=== PATIENT | female | born 1970 | race Caucasian/White ===

== ENCOUNTER → 2017-08-19 | Outpatient (CLI) | payer OTHER ==
[~2017-08-19] MED LIST: LIDOCAINE 1%, 20ML ONE; LIDOCAINE 1%-EPI 1:100K, 20ML ONE
== END | disposition home or self-care (01) ==
LOC: CFH 08:10 → EDSTATUS 08:15
PROVIDERS: ATTEND Obstetrics & Gynecology
DX: N63.21 Unspecified lump in the left breast, upper outer quadrant (principal); N63.10 Unspecified lump in the right breast, unspecified quadrant
CPT/HCPCS: 19083; 19084; 76642; 77066; J3490; 88305

== ENCOUNTER → 2017-09-10 | Outpatient (CLI) | payer OTHER ==
[~2017-09-10] MED LIST changes: +GADOBUTROL 10 MMOL/10 ML VIAL ONE; -LIDOCAINE 1%, 20ML ONE; -LIDOCAINE 1%-EPI 1:100K, 20ML ONE
== END ==
LOC: CFH 12:29
PROVIDERS: ATTEND Surgery
DX: C50.412 Malignant neoplasm of upper-outer quadrant of left female breast (principal)
CPT/HCPCS: 71046; A9585; C8908

== ENCOUNTER 2017-10-29 06:38 | Day surgery (SDC) | payer OTHER ==
[2017-10-25 14:13] VITALS: BP 122/84
[~2017-10-29] VITALS: Ht 167.6 cm; Wt 94.5 kg
[~2017-10-29 06:38] MED LIST changes: +EMLA CREAM TP; -GADOBUTROL 10 MMOL/10 ML VIAL ONE; +THYR90TA PO
[2017-10-29] MEDS ORDERED: SCOPOLAMINE PATCH, 1.5MG PATCH.TD72 TD ONE (08:30)
[2017-10-29] MEDS ORDERED: DIAZEPAM 5 MG TABLET PO ONE (08:30)
[2017-10-29] MEDS ORDERED: ACETAMINOPHEN 500 MG TABLET PO ONE (08:30)
[2017-10-29] MEDS ORDERED: OxyconTIN ER 10 MG TAB.ER PO ONE (08:30)
[2017-10-29] MEDS ORDERED: GABAPENTIN 300 MG CAPSULE PO ONE (08:30)
[2017-10-29] MEDS ORDERED: FAMOTIDINE 20 MG TABLET PO ONE (08:30)
[2017-10-29 09:21] LABS: HCG UR SG 1.022 (1.003-1.030)
[2017-10-29] MEDS ORDERED: LACTATED RINGERS 1,000 ML IV SCH (09:22)
[2017-10-29] MEDS ORDERED: ONDANSETRON ODT 8 MG ONE (09:45)
[2017-10-29] MEDS ORDERED: ONDANSETRON ODT 8 MG PO ONE (10:00)
[2017-10-29] MEDS ORDERED: BUPIVACAINE/PF-EPI 0.5% 1:200K INFIL ONE (11:27)
[2017-10-29] MEDS: FENTANYL PF 100 MCG/2ML IV PRN ×3 (13:10→13:28)
[2017-10-29] MEDS ORDERED: OXYcodone 5 MG/5 ML ORAL.SOL UDC PO PRN (13:30)
[2017-10-29] MEDS ORDERED: MIDAZOLAM 1 MG/ML, 2ML IV PRN (13:30)
[2017-10-29] MEDS ORDERED: EPHEDRINE 50 MG/ML, 1ML IVPush PRN (13:30)
[2017-10-29] MEDS ORDERED: ONDANSETRON 2MG/ML, 2ML IVPush PRN (13:30)
[2017-10-29] MEDS ORDERED: METOPROLOL 1 MG/ML, 5ML IV PRN (13:30)
[2017-10-29] MEDS ORDERED: PROMETHAZINE 12.5 MG SUPP PR PRN (13:30)
[2017-10-29] MEDS ORDERED: HYDROcodone/APAP 7.5-325MG/15ML UDC PO PRN (13:30)
[2017-10-29] MEDS ORDERED: hydrALAzine 20 MG/ML, 1ML IV PRN (13:30)
[2017-10-29] MEDS ORDERED: MEPERIDINE/PF 25MG/0.5ML IVPush PRN (13:30)
[2017-10-29] MEDS ORDERED: LABETALOL 5MG/ML, 20ML IV PRN (13:30)
[2017-10-29] MEDS ORDERED: PROMETHAZINE 25 MG/ML, 1ML IV PRN (13:30)
[2017-10-29] MEDS ORDERED: ALBUTEROL SULFATE 2.5 MG/3 ML NPPB PRN (13:30)
[2017-10-29] MEDS ORDERED: morphine SULFATE 10 MG/ML, 1ML IV PRN (13:30)
[2017-10-29] MEDS ORDERED: DIAZEPAM 5 MG/ML, 2ML IVPush PRN (13:30)
[2017-10-29] MEDS ORDERED: ONDANSETRON 2MG/ML, 2ML ONE (15:24)
[2017-10-29] MEDS ORDERED: PROPOFOL 10 MG/ML, 20ML ONE (15:24)
[2017-10-29] MEDS ORDERED: DEXAMETHASONE 4 MG/ML, 1ML ONE (15:24)
[2017-10-29] MEDS ORDERED: CEFAZOLIN 1,000 MG ONE (15:24)
== END 2017-10-29 18:45 ==
LOC: CFH 06:38 → OUT 18:45
PROVIDERS: ATTEND Surgery
DX: C50.912 Malignant neoplasm of unspecified site of left female breast (principal); E78.00 Pure hypercholesterolemia, unspecified; E03.9 Hypothyroidism, unspecified; Z98.890 Other specified postprocedural states; Z88.1 Allergy status to other antibiotic agents; Z88.8 Allergy status to other drugs, medicaments and biological substances
CPT/HCPCS: 19285; 19301; 38525; 38792; 77065; 81025; 88307; 88329; 88333; A9541; C1729; J0171; J0690; J1100; J2250; J2405; J2704; J3010; J3490; J7120

== ENCOUNTER → 2018-01-09 | Outpatient (CLI) | payer OTHER | END | disposition home or self-care (01) | LOC: CFH 15:39 | PROVIDERS: ATTEND Radiology Radiation Oncology | DX: R22.32 Localized swelling, mass and lump, left upper limb (principal) ==

== ENCOUNTER → 2018-02-19 | Outpatient (CLI) | payer OTHER | END | disposition home or self-care (01) | LOC: ROC 07:54 | PROVIDERS: ATTEND Radiology Radiation Oncology | DX: C50.412 Malignant neoplasm of upper-outer quadrant of left female breast (principal) | CPT/HCPCS: 99213; G0463 ==

== ENCOUNTER → 2018-05-02 | Outpatient (CLI) | payer OTHER | END | disposition home or self-care (01) | LOC: CFH 12:13 | PROVIDERS: ATTEND Radiology Radiation Oncology | DX: Z09 Encounter for follow-up examination after completed treatment for conditions other than malignant neoplasm (principal); C50.412 Malignant neoplasm of upper-outer quadrant of left female breast | CPT/HCPCS: 77065 ==

== ENCOUNTER → 2018-06-27 | Outpatient (CLI) | payer OTHER | END | disposition home or self-care (01) | LOC: PETCFH 09:36 | PROVIDERS: ATTEND Internal Medicine Hematology & Oncology | DX: C88.9 Malignant immunoproliferative disease, unspecified (principal); C50.412 Malignant neoplasm of upper-outer quadrant of left female breast | CPT/HCPCS: 78815; A9552 ==

== ENCOUNTER 2018-07-04 06:13 | Day surgery (SDC) | payer OTHER ==
[~2018-07-04] VITALS: Ht 167.6 cm; Wt 99.7 kg
[2018-07-04] MEDS ORDERED: SODIUM CHLORIDE 0.9% 1,000 ML IV SCH (06:54)
[2018-07-04 07:23] VITALS: BP 103/68
[2018-07-04] MEDS ORDERED: LIDOCAINE-MPF 1%, 5ML ONE (07:40)
[2018-07-04] MEDS ORDERED: MIDAZOLAM 1 MG/ML, 5ML ONE ×2 (07:43)
[2018-07-04] MEDS ORDERED: NALOXONE 1 MG/ML, 2ML ONE (07:43)
[2018-07-04] MEDS ORDERED: FENTANYL PF 100 MCG/2ML ONE ×2 (07:43)
[2018-07-04] MEDS ORDERED: FLUMAZENIL 0.1 MG/1 ML, 5ML ONE (07:43)
== END 2018-07-04 09:55 | disposition home or self-care (01) ==
LOC: OUT 06:13
PROVIDERS: ATTEND Internal Medicine Hematology & Oncology
DX: C85.11 Unspecified B-cell lymphoma, lymph nodes of head, face, and neck (principal); C50.412 Malignant neoplasm of upper-outer quadrant of left female breast; I10 Essential (primary) hypertension
CPT/HCPCS: 38505; 76942; 88305; J2250; J3010; J7030; J2310

== ENCOUNTER → 2018-09-17 | Outpatient (CLI) | payer OTHER | END | disposition home or self-care (01) | LOC: CFH 09:39 | PROVIDERS: ATTEND Internal Medicine Hematology & Oncology | DX: Z12.31 Encounter for screening mammogram for malignant neoplasm of breast (principal) | CPT/HCPCS: 77067 ==

== ENCOUNTER → 2018-10-29 | Outpatient (CLI) | payer OTHER | END | disposition home or self-care (01) | LOC: CFH 09:09 → EDSTATUS 09:15 | PROVIDERS: ATTEND Specialist | DX: N83.202 Unspecified ovarian cyst, left side (principal); N83.201 Unspecified ovarian cyst, right side | CPT/HCPCS: 76830 ==

== ENCOUNTER → 2019-12-23 | Outpatient (CLI) | payer OTHER | END | disposition home or self-care (01) | LOC: CFH 10:12 | PROVIDERS: ATTEND Internal Medicine Hematology & Oncology | DX: Z12.31 Encounter for screening mammogram for malignant neoplasm of breast (principal); C88.9 Malignant immunoproliferative disease, unspecified; C50.412 Malignant neoplasm of upper-outer quadrant of left female breast; H60.11 Cellulitis of right external ear; Z85.3 Personal history of malignant neoplasm of breast | CPT/HCPCS: 76641; 77067 ==

== ENCOUNTER → 2020-08-30 | Outpatient (CLI) | payer OTHER | END | disposition home or self-care (01) | LOC: PETCFH 13:38 | PROVIDERS: ATTEND Internal Medicine Hematology & Oncology | DX: C50.412 Malignant neoplasm of upper-outer quadrant of left female breast (principal); C91.12 Chronic lymphocytic leukemia of B-cell type in relapse; C88.9 Malignant immunoproliferative disease, unspecified; H60.11 Cellulitis of right external ear; R16.1 Splenomegaly, not elsewhere classified; R59.1 Generalized enlarged lymph nodes | CPT/HCPCS: 78815; 93005; A9552 ==

== ENCOUNTER 2020-09-19 13:44 | Inpatient (IN) | payer OTHER ==
[~2020-09-19] VITALS: Ht 167.6 cm; Wt 96.0 kg
--- NOTE | 2020-09-19 14:19 | NUR ---
MEDICAL SERVICES MANAGER: CLEAN CATCH UA COLLECTED AND SENT TO LAB AT THIS TIME. PT REMAINS IN LOBBY, AWAITING ROOM. AMBULATORY WITH STEADY GAIT, A&OX4. DENIES DIZZINESS/WEAKNESS AT THIS TIME.
[2020-09-19 14:33] LABS: MICROSCOPIC NOT IND
--- NOTE | 2020-09-19 14:47 | NUR ---
ASSUMED CARE OF PATIENT. PATIENT REPORTS SHE IS GETTING TREATMENT FOR CLL. PT HAS BEEN FEELING DIZZY PT ALSO REPORTS SHE HAS HAD A FEVER. PT HAS BLOOD DRAWN ON SATURDAY. PT WAS CALLED BY HER DR'S OFFICE TODAY AND WAS TOLD TO COME TO THE ER FOR A POSITIVE BLOOD CULTURE. VS STABLE. NO ACUTE DISTRESS NOTED. CALL LIGHT IN PLACE WILL CONTINUE TO MONITOR.
--- NOTE | 2020-09-19 14:51 | NUR ---
Bedside report from CORIE Garcia. Assumed care.
--- NOTE | 2020-09-19 14:54 | NUR ---
BEDSIDE REPORT GIVEN TO CORIE ARELLANO
--- NOTE | 2020-09-19 15:44 | NUR ---
Dr. Toscano at bedside.
--- NOTE | 2020-09-19 16:02 | NUR ---
Requesting medical records from other facilities for pt.
--- NOTE | 2020-09-19 16:05 | NUR ---
Bahman mcmahon in [facility] - 09/19/20 at 1606 by NITHYA Pt agrees with and understands discharge plan and instructions.
[2020-09-19 16:47] LABS: ALANINE AMINOTRANSFERASE 20 U/L (12-78); ALBUMIN 3.2 g/dL (3.4-5.0); ANION GAP 9 mmol/L (5-15); CALCIUM 8.7 mg/dL (8.5-10.1); CHLORIDE 108 mmol/L (98-107)
[2020-09-19 16:50] LABS: ALKALINE PHOSPHATASE 65 U/L (45-117); BILIRUBIN,TOTAL 1.3 mg/dL (0.2-1.0); TOTAL PROTEIN 6.1 g/dL (6.4-8.2)
[2020-09-19 16:54] LABS: BASOPHILS % (AUTO) 1 % (0-1); EOSINOPHILS % (AUTO) 3 % (1-7); LYMPHOCYTES % (AUTO) 29 % (22-44); MEAN CORPUSCULAR HEMOGLOBIN 31.6 pg (27.0-34.8); MONOCYTES % (AUTO) 10 % (2-9); NEUTROPHILS % (AUTO) 57 % (42-75); PLATELET COUNT 118 x10^3/uL (130-400); RED BLOOD COUNT 3.48 x10^6/uL (3.82-5.3); RED CELL DISTRIBUTION WIDTH 17.8 % (9.6-15.2)
[2020-09-19] MEDS: DOXYCYCLINE 100 MG in DEXTROSE 5% 250 ML IV SCH (17:00)
--- NOTE | 2020-09-19 17:09 | NUR ---
Blood cultures have been drawn. Doxycylcine started per eMAR.
[2020-09-19 17:24] LABS: MD SCAN
--- NOTE | 2020-09-19 17:27 | NUR ---
Report called to CORIE Munoz.
--- NOTE | 2020-09-19 17:41 | NUR ---
Pt transported to room 438.
[2020-09-19 18:20] VITALS: BP 111/72
[2020-09-19] MEDS ORDERED: ACYC-114 PO (18:20)
[2020-09-19] MEDS ORDERED: ALLO300T PO (18:20)
[2020-09-19 19:16] VITALS: BP 110/70
[2020-09-19] MEDS: ACYCLOVIR 400 MG TABLET PO SCH (20:51)
[2020-09-19] MEDS: ENOXAPARIN 40 MG/0.4 ML SQ SCH (22:57)
[2020-09-19] MEDS ORDERED: DOCUSATE 100 MG CAPSULE PO PRN (23:00)
[2020-09-19] MEDS ORDERED: ENALAPRILAT 1.25 MG/ML, 2ML IVPush PRN (23:00)
[2020-09-19] MEDS ORDERED: ACETAMINOPHEN 325 MG TABLET PO PRN (23:00)
[2020-09-19] MEDS ORDERED: MELATONIN 5 MG TABLET PO PRN (23:00)
[2020-09-20 02:26] VITALS: BP 96/63
[2020-09-20] MEDS: DOXYCYCLINE 100 MG in DEXTROSE 5% 250 ML IV SCH (05:05)
[2020-09-20 05:08] LABS: BASOPHILS % (AUTO) 2 % (0-1); EOSINOPHILS % (AUTO) 4 % (1-7); LYMPHOCYTES % (AUTO) 29 % (22-44); MEAN CORPUSCULAR HGB CONC 34.5 g/dL (32.4-35.8); MEAN PLATELET VOLUME 8.4 fL (7.4-10.4); MONOCYTES % (AUTO) 11 % (2-9); NEUTROPHILS % (AUTO) 54 % (42-75); PLATELET COUNT 120 x10^3/uL (130-400); RED BLOOD COUNT 3.08 x10^6/uL (3.82-5.3); RED CELL DISTRIBUTION WIDTH 17.7 % (9.6-15.2)
[2020-09-20 05:21] LABS: CHLORIDE 108 mmol/L (98-107)
[2020-09-20 05:25] LABS: ANION GAP 9 mmol/L (5-15); CALCIUM 8.3 mg/dL (8.5-10.1); CREATININE 0.78 mg/dL (0.55-1.02)
[2020-09-20 05:55] LABS: MD SCAN
[2020-09-20 07:50] VITALS: BP 98/65
[2020-09-20] MEDS: ACYCLOVIR 400 MG TABLET PO SCH ×2 (07:56→21:49)
[2020-09-20] MEDS: ALLOPURINOL 300 MG TABLET PO SCH (07:56)
[2020-09-20] MEDS ORDERED: ARMOUR THYROID 90 MG PO SCH ×2 (08:00→08:01)
[2020-09-20] MEDS ORDERED: THYROID 30 MG TABLET PO SCH (08:00)
[2020-09-20 11:30] LABS: HCT (SEDRATE) 30.2 % (34.6-47.8)
[2020-09-20] MEDS: DAPTOMYCIN 550 MG in SODIUM CHLORIDE 0.9% 100 ML IVPB SCH (11:30)
[2020-09-20 11:50] LABS: C-REACTIVE PROTEIN, QUANT 2.6 mg/dL (0.02-0.49)
[2020-09-20 13:52] VITALS: BP 111/72
[2020-09-20 18:35] VITALS: BP 100/64
[2020-09-20] MEDS: ENOXAPARIN 40 MG/0.4 ML SQ SCH (21:49)
[2020-09-20 21:53] VITALS: BP 101/66
[2020-09-21 03:36] VITALS: BP 106/67
[2020-09-21] MEDS: ARMOUR THYROID 90 MG PO SCH (05:43)
[2020-09-21 06:24] LABS: MEAN CORPUSCULAR HEMOGLOBIN 31.8 pg (27.0-34.8); MEAN CORPUSCULAR HGB CONC 34.3 g/dL (32.4-35.8); MEAN PLATELET VOLUME 8.2 fL (7.4-10.4); PLATELET COUNT 126 x10^3/uL (130-400); RED BLOOD COUNT 3.13 x10^6/uL (3.82-5.3); RED CELL DISTRIBUTION WIDTH 18.1 % (9.6-15.2)
[2020-09-21 06:34] LABS: CHLORIDE 111 mmol/L (98-107)
[2020-09-21 06:43] LABS: ALANINE AMINOTRANSFERASE 14 U/L (12-78); ALBUMIN 2.6 g/dL (3.4-5.0); ALKALINE PHOSPHATASE 52 U/L (45-117); ANION GAP 6 mmol/L (5-15); BILIRUBIN,TOTAL 0.7 mg/dL (0.2-1.0); CALCIUM 7.8 mg/dL (8.5-10.1); CREATININE 0.62 mg/dL (0.55-1.02); TOTAL PROTEIN 5.1 g/dL (6.4-8.2)
[2020-09-21 06:55] LABS: MD YES
[2020-09-21 06:59] LABS: BAND#(MANUAL) 0.17 x10^3/uL; BANDS%(MANUAL) 4 % (0-7); EOS#(MANUAL) 0.04 x10^3/uL (0.0-0.4); EOS% (MANUAL) 1 % (1-7); LYMPH#(MANUAL) 1.39 x10^3/uL (1-3.4); LYMPHS% (MANUAL) 33 % (22-44); MONOS#(MANUAL) 0.34 x10^3/uL (0.3-2.7); MONOS% (MANUAL) 8 % (2-9); REACTIVE LYMPHS # (MANUAL) 0.21 x10^3/uL (0-0); REACTIVE LYMPHS % (MANUAL) 5 % (0-0); SEG#(MANUAL) 2.06 x10^3/uL (1.8-6.8); SEGS% (MANUAL) 49 % (42-75)
[2020-09-21 07:00] LABS: <PLATELET ESTIMATE> ADEQUATE; <PLT MORPHOLOGY> NORMAL PLT MORPH; ANISOCYTOSIS 1+
[2020-09-21 08:00] VITALS: BP 106/70
[2020-09-21] MEDS: ALLOPURINOL 300 MG TABLET PO SCH (09:09)
[2020-09-21] MEDS: ACYCLOVIR 400 MG TABLET PO SCH ×2 (09:09→21:12)
[2020-09-21] MEDS: DAPTOMYCIN 550 MG in SODIUM CHLORIDE 0.9% 100 ML IVPB SCH (11:44)
[2020-09-21 13:36] VITALS: BP 97/58
[2020-09-21 19:01] VITALS: BP 115/54
[2020-09-21] MEDS: ENOXAPARIN 40 MG/0.4 ML SQ SCH (21:12)
[2020-09-22 01:47] VITALS: BP 90/54
[2020-09-22] MEDS: ARMOUR THYROID 90 MG PO SCH (06:00)
[2020-09-22 06:06] LABS: BASOPHILS % (AUTO) 1 % (0-1); EOSINOPHILS % (AUTO) 4 % (1-7); LYMPHOCYTES % (AUTO) 34 % (22-44); MEAN CORPUSCULAR HEMOGLOBIN 31.5 pg (27.0-34.8); MEAN CORPUSCULAR HGB CONC 33.6 g/dL (32.4-35.8); MEAN PLATELET VOLUME 8.2 fL (7.4-10.4); MONOCYTES % (AUTO) 12 % (2-9); NEUTROPHILS % (AUTO) 49 % (42-75); PLATELET COUNT 145 x10^3/uL (130-400); RED BLOOD COUNT 3.11 x10^6/uL (3.82-5.3)
[2020-09-22 06:21] LABS: ALBUMIN 2.8 g/dL (3.4-5.0); ANION GAP 3 mmol/L (5-15); CALCIUM 8.6 mg/dL (8.5-10.1); CHLORIDE 110 mmol/L (98-107)
[2020-09-22 06:23] LABS: MD NO
[2020-09-22 06:25] LABS: ALANINE AMINOTRANSFERASE 15 U/L (12-78); ALKALINE PHOSPHATASE 49 U/L (45-117); BILIRUBIN,TOTAL 0.6 mg/dL (0.2-1.0); CREATININE 0.68 mg/dL (0.55-1.02); TOTAL PROTEIN 5.2 g/dL (6.4-8.2)
[2020-09-22 07:11] VITALS: BP 85/48
[2020-09-22] MEDS: ALLOPURINOL 300 MG TABLET PO SCH (10:07)
[2020-09-22] MEDS: ACYCLOVIR 400 MG TABLET PO SCH (10:08)
[2020-09-22] MEDS: DAPTOMYCIN 550 MG in SODIUM CHLORIDE 0.9% 100 ML IVPB SCH (11:10)
== END 2020-09-22 12:50 | disposition home or self-care (01) | DRG 872 ==
LOC: ED 16:55 → EDIP 17:03 → ED 17:32 → 4NW 17:50
PROVIDERS: ADMIT Hospitalist; ATTEND Hospitalist
PROC: 02HV33Z Insertion of Infusion Device into Superior Vena Cava, Percutaneous Approach (ICD-10-PCS; principal; 2020-09-22)
PROC: B5181ZA Fluoroscopy of Superior Vena Cava using Low Osmolar Contrast, Guidance (ICD-10-PCS; 2020-09-22)
PROC: B548ZZA Ultrasonography of Superior Vena Cava, Guidance (ICD-10-PCS; 2020-09-22)
DX: R78.81 Bacteremia (principal); C91.10 Chronic lymphocytic leukemia of B-cell type not having achieved remission; D84.9 Immunodeficiency, unspecified; E03.9 Hypothyroidism, unspecified; B95.0 Streptococcus, group A, as the cause of diseases classified elsewhere; I89.0 Lymphedema, not elsewhere classified; T45.1X5A Adverse effect of antineoplastic and immunosuppressive drugs, initial encounter; D64.81 Anemia due to antineoplastic chemotherapy; B95.1 Streptococcus, group B, as the cause of diseases classified elsewhere; D63.8 Anemia in other chronic diseases classified elsewhere; D69.6 Thrombocytopenia, unspecified; Z80.41 Family history of malignant neoplasm of ovary; Z80.49 Family history of malignant neoplasm of other genital organs; Z92.21 Personal history of antineoplastic chemotherapy; Z85.3 Personal history of malignant neoplasm of breast; Z88.0 Allergy status to penicillin; Z88.2 Allergy status to sulfonamides; Z88.1 Allergy status to other antibiotic agents; Z79.899 Other long term (current) drug therapy
CPT/HCPCS: 36415; 36573; 71046; 80048; 80053; 81003; 82550; 83605; 84145; 84443; 85025; 85651; 86140; 87040; 93005; 93306; 93356; 96372; 96374; 99285; G0378; J0878; J1650; J7060; C1751

== ENCOUNTER 2021-03-15 14:49 | Outpatient (CLI) | payer OTHER ==
[~2021-03-15 14:49] MED LIST changes: +ACYC-40 PO; +ALLO300T PO
== END 2021-03-15 23:59 | disposition home or self-care (01) ==
LOC: CFH 14:49
PROVIDERS: ATTEND Internal Medicine Hematology & Oncology
DX: Z12.31 Encounter for screening mammogram for malignant neoplasm of breast (principal); C50.412 Malignant neoplasm of upper-outer quadrant of left female breast; C88.9 Malignant immunoproliferative disease, unspecified; C91.12 Chronic lymphocytic leukemia of B-cell type in relapse; H60.11 Cellulitis of right external ear; Z79.899 Other long term (current) drug therapy
CPT/HCPCS: 76641; 77063; 77067